=== PATIENT | male | born 1945 | race Caucasian/White ===

== ENCOUNTER 2016-06-06 10:21 | Outpatient (CLI) | payer MEDICARE, BC | END 2016-06-06 10:22 | disposition home or self-care (01) | DX: R93.6 Abnormal findings on diagnostic imaging of limbs (principal) ==

== ENCOUNTER 2019-06-12 10:47 | Emergency (ER) | payer MEDICARE, BC ==
--- NOTE | 2019-06-12 12:17 | ED Physician Documentation ---
PD HPI ABD PAIN - Stated complaint Stated Complaint: CONSTIPATION,S/P RT KNEE SURGERY - Chief complaint Chief Complaint: Abd Pain - History obtained from History obtained from: Patient (He is 5 days out from a knee replacement, taking oxycodone. He has not had a bowel movement in several days despite taking prune juice and milk of magnesia and now has cramps and rectal pressure as well as some urinary frequency.) Review of Systems Constitutional: reports: Reviewed and negative Cardiac: reports: Reviewed and negative Respiratory: reports: Reviewed and negative PD PAST MEDICAL HISTORY - Past Medical History Cardiovascular: None Respiratory: None Endocrine/Autoimmune: None GI: None HEENT: None Psych: None Musculoskeletal: None Derm: None - Past Surgical History Past Surgical History: No - Present Medications Home Medications: Ambulatory Orders Medication Instructions Recorded Confirmed Ibuprofen [Advil] 200 mg PO DAILY PRN 04/10/15 03/29/19 oxyCODONE [Roxicodone] 0.5 tab PO ONCE PRN 02/03/17 03/29/19 Lactulose [Constulose] 10 gm PO Q6H PRN #150 ml 06/12/19 - Allergies Allergies/Adverse Reactions: Allergies Allergy/AdvReac Type Severity Reaction Status Date / Time No Known Drug Allergies Allergy Verified 03/29/19 13:07 - Social History Does the pt smoke?: No Smoking Status: Never smoker Does the pt drink ETOH?: No Does the pt have substance abuse?: No - Immunizations Immunizations are current?: Yes - POLST Patient has POLST: No PD ED PE NORMAL - Vitals Vital signs reviewed: Yes - General General: Alert and oriented X 3, No acute distress - Abdomen Abdomen: Normal bowel sounds, Soft, Non tender - Rectal Rectal: Other (Soft brown fecal impaction, a saline enema was placed during exam.) - Back Back: No CVA TTP, No spinal TTP - Neuro Neuro: Alert and oriented X 3, Normal speech Results - Vitals Vitals: Vital Signs - 24 hr 06/12/19 10:50 Temperature 36.3 C L Heart Rate 99 Respiratory 18 Rate Blood Pressure 104/53 L O2 Saturation 99 Oxygen O2 Source Room air - Labs Labs: Laboratory Tests 06/12/19 12:15 Urine Color YELLOW Urine Clarity CLEAR Urine pH 7.5 Ur Specific [place] 1.015 Urine Protein NEGATIVE Urine Glucose (UA) NEGATIVE Urine Ketones NEGATIVE Urine Occult Blood NEGATIVE Urine Nitrite NEGATIVE Urine Bilirubin NEGATIVE Urine Urobilinogen 0.2 (NORMAL) Ur Leukocyte Esterase NEGATIVE Ur Microscopic Review NOT INDICATED Urine Culture Comments NOT INDICATED PD MEDICAL DECISION MAKING - ED course ED course: Using a combination of manual disimpaction and enemas we were able to clear the fecal impaction and he felt much better. Departure - Departure Disposition: Home, Self Care Clinical Impression: Fecal impaction Condition: Good Record reviewed to determine appropriate education?: Yes Instructions: ED Impaction Fecal Treated Prescriptions: Lactulose [Constulose] 10 gm PO Q6H PRN #150 ml PRN Reason: Constipation Comments: Drink plenty of fluids, on any day you do not have a bowel movement start taking the lactulose 4 times a day until you do. Return for new or worsening symptoms. Try to minimize the pain medication as much as possible or take Tylenol if you are not taking the narcotic which should not make you constipated
[2019-06-12 12:43] LABS: BILIRUBIN,URINE NEGATIVE (NEGATIVE); GLUCOSE, URINE (UA) NEGATIVE (NEGATIVE); KETONES,URINE (UA) NEGATIVE (NEGATIVE); LEUKOCYTE ESTERASE, URINE NEGATIVE (NEGATIVE); NITRITE,URINE NEGATIVE (NEGATIVE); OCCULT BLOOD,URINE NEGATIVE (NEGATIVE); PH,URINE 7.5 PH (5.0-7.5); PROTEIN,URINE NEGATIVE (NEGATIVE); UROBILINOGEN,URINE 0.2 (NORMAL) E.U./dL (NORMAL)
[2019-06-12 12:47] LABS: CLARITY,URINE CLEAR (CLEAR)
[2019-06-12] MEDS ORDERED: MAGNESIUM CITRATE 296 ML BOTTLE PO STA (13:00)
[2019-06-12 13:13] VITALS: BP 123/63
== END 2019-06-12 13:38 | disposition home or self-care (01) ==
LOC: ED 10:47
DX: K56.41 Fecal impaction (principal)
CPT/HCPCS: 81003; 99283; 99284; A9270; 81001; 87086

== ENCOUNTER 2021-07-13 17:12 | Outpatient (CLI) | payer MEDICARE, BC ==
[2021-07-13 17:54] LABS: BASOPHILS % (AUTO) 0.4 %; EOSINOPHILS # (AUTO) 0.1 10^3/uL (0.0-0.7); EOSINOPHILS % (AUTO) 1.3 %; HCT - HEMATOCRIT 34.7 % (42.0-52.0); HGB - HEMOGLOBIN 11.8 g/dL (14.0-18.0); LYMPHOCYTES # (AUTO) 1.6 10^3/uL (1.5-3.5); MEAN CORPUSCULAR HEMOGLOBIN 34.3 pg (27.0-31.0); MEAN CORPUSCULAR VOLUME 100.9 fL (80.0-94.0); MEAN PLATELET VOLUME 10.6 fL (7.4-11.4); MONOCYTES # (AUTO) 0.7 10^3/uL (0.0-1.0); MONOCYTES % (AUTO) 10.7 %; NEUTROPHILS # (AUTO) 4.2 10^3/uL (1.5-6.6); NEUTROPHILS % (AUTO) 63.3 %; NRBC ABSOLUTE COUNT (AUTO) 0.03 x10^3/uL; NUCLEATED RED BLOOD CELLS AUTO 0.4 /100WBC; PLT - PLATELET COUNT 340 10^3/uL (130-450); RED BLOOD COUNT 3.44 10^6/uL (4.70-6.10); RED CELL DISTRIBUTION WIDTH 17.2 % (12.0-15.0); WHITE BLOOD COUNT 6.7 x10^3/uL (4.8-10.8)
[2021-07-13 18:08] LABS: ALBUMIN 4.5 g/dL (3.2-5.5); ALBUMIN/GLOBULIN RATIO 1.6 (1.0-2.2); ALKALINE PHOSPHATASE 91 IU/L (42-121); ALT ALANINE AMINOTRANSFERASE 24 IU/L (10-60); AST ASPARTATE AMINOTRANSFERASE 21 IU/L (10-42); BILIRUBIN,TOTAL 1.1 mg/dL (0.2-1.0); BUN - BLOOD UREA NITROGEN 21 mg/dL (6-20); CALCIUM 8.9 mg/dL (8.5-10.3); CARBON DIOXIDE - CO2 30 mmol/L (21-32); CHLORIDE 101 mmol/L (101-111); CREATININE 0.9 mg/dL (0.6-1.2); GFR - MDRD 83 (>89); GLUCOSE 125 mg/dL (70-100); SODIUM 139 mmol/L (135-145); TOTAL PROTEIN 7.4 g/dL (6.7-8.2)
[2021-07-13 19:18] LABS: CRP - C-REACTIVE PROTEIN < 1.0 mg/dL (0-1.0)
[2021-07-13 20:58] LABS: RHEUMATOID FACTOR NEGATIVE (Negative)
[2021-07-17 14:01] LABS: ANA SCREEN NEGATIVE (NEGATIVE)
== END 2021-07-13 17:13 | disposition home or self-care (01) ==
LOC: LAB 17:12
PROVIDERS: ATTEND Nurse Practitioner Family
DX: T69.1XXA Chilblains, initial encounter (principal); M25.50 Pain in unspecified joint; R21 Rash and other nonspecific skin eruption
CPT/HCPCS: 36415; 80053; 81599; 85025; 85651; 86038; 86140; 86235; 86430

== ENCOUNTER 2022-08-31 22:32 | Emergency (ER) | payer MEDICARE, BC ==
--- NOTE | 2022-08-31 22:49 | ED Physician Documentation ---
History of Present Illness - Stated complaint Stated Complaint: SPLINTER IN L HAND/PX - Chief complaint Chief Complaint: General - History obtained from History obtained from: Patient - Additonal information Additional information: HPI from patient. Approximately 4 to 5 hours prior to arrival, the patient was using a table saw to cut up some yellow cedar. He tripped and fell forward, landing with her left outstretched hand onto a pile of some freshly cut wood, and felt a sharp pain in the left hand. On inspection of the area, he found a splinter; he says he was able to remove the splinter, but he subsequently suspects there is still part of the splinter in the skin based on a focal, sharp sensation with pressure to the area. He also notes increasing swelling around the area with associated pain that is both distal and proximal to the area of injury. He has full range of motion in the hand and fingers. Review of Systems Musculoskeletal: reports: Extremity pain, Extremity swelling Neurologic: denies: Focal weakness, Numbness PD PAST MEDICAL HISTORY - Past Medical History Cardiovascular: None Respiratory: None Endocrine/Autoimmune: None GI: None HEENT: None Psych: None Musculoskeletal: None Derm: None - Past Surgical History Past Surgical History: No - Present Medications Home Medications: Ambulatory Orders Medication Instructions Recorded Confirmed Doxycycline [Vibramycin] 100 mg PO BID #14 tablet 09/01/22 - Allergies Allergies/Adverse Reactions: Allergies Allergy/AdvReac Type Severity Reaction Status Date / Time No Known Drug Allergies Allergy Verified 08/31/22 22:42 - Social History Does the pt smoke?: No Smoking Status: Never smoker Does the pt drink ETOH?: No Does the pt have substance abuse?: No - Immunizations Immunizations are current?: Yes - POLST Patient has POLST: No PD ED PE NORMAL - Vitals Vital signs reviewed: Yes - General General: Alert and oriented X 3, No acute distress, Well developed/nourished - Derm Derm: Normal color, Warm and dry - Neuro Neuro: No motor deficit (Full range of motion and strength in extension as well as flexion of the left first second and third digits.), No sensory deficit (Light touch sensation is intact in the fingers of the left hand) PD ED PE EXPANDED - Extremities RYAN UE/Hands Visual: 1 - tenderness (Punctate defect in the skin with dark discoloration consistent with embedded foreign body (splinter). Patient reports sharp discomfort with palpation of the area. There is mild tenderness without erythema both distal and proximal to the area as labeled (2)) 2 - swelling Results - Vitals Vitals: Oxygen O2 Source Room air PD Medical Decision Making - ED course Complexity details: considered differential, d/w patient ED course: There is no bony tenderness on the exam and thus no radiologic studies such as x-ray are indicated at this time. After sterile prep with Betadine and alcohol swab, the area of suspected foreign body is numbed with local injection of 1% lidocaine without epinephrine. This provided good anesthesia.Using the beveled edge of a 25-gauge needle at the end of a 5 cc syringe, I then made a small incision; this did not result and clear, confident visualization of a foreign body. I then used a 27-gauge needle at the end of an insulin syringe to attempt to get probe deep to the suspected FB, but this resulted in brisk , focal (nonpulsatile) bleeding. The extent of the bleeding was insignificant, but it obscured further attempts at visualization of a foreign body. I applied direct pressure to the area for several minutes, and, eventually, hemostasis was achieved. I again tried to maneuver the 27- gauge needle to try to raise the proximal end of the foreign body, but, unfortunately, this again resulted in bleeding. As before, several minutes of pressure did result in complete hemostasis. I discussed with the patient that, at this point, further attempts to remove what is a suspected foreign body although not a clearly, confidently visualized one, is likely to cause more problems than prevent complications. One of his expressed concerns is infection. I explained that it would be exceedingly unusual to develop Infection within such a short span of time from the injury/foreign body. However, seeing that there is a reasonable suspicion that a foreign body remains in the area, I am providing him with a prescription for doxycycline, the first dose of which is given in the emergency department prior to discharge. He declines analgesia in the ER, as well as prescription for pain medication. Patient says that he is prescription pain medication at home which he will take if [id number] medications do not control his pain. Patient is driving home and does not want a medication that would preclude driving at this time. We carefully discussed return precautions, and I advised him to contact his primary care provider on Friday when the office is open to arrange for next available appointment for reevaluation Departure - Departure Disposition: 01 Home, Self Care Clinical Impression: Foreign body (FB) in soft tissue Condition: Good Instructions: ED Foreign Body Soft Tissue Prescriptions: Doxycycline [Vibramycin] 100 mg PO BID #14 tablet Comments: Unfortunately, I was unable to get the splinter out. This was partly due to the bleeding that occurred when the skin was opened slightly (the bleeding obscures the view of the area), but I also did not have confident visualization of the splinter when I first made the opening (prior to the bleeding). As we discussed, splinters are often eventually encapsulated by the body and slowly pushed out of the skin. I am prescribing an antibiotic for you (doxycycline), with the first dose given in the emergency department and a prescription for this antibiotic electronically submitted to the [facility] pharmacy in [place]. You should contact your primary care provider when the office opens on Friday to arrange for follow-up/reevaluation; ideally, if they can reevaluate you in 2 to 3 days. Certainly, if your signs/symptoms worsen, you should return to the emergency department for reevaluation. Concerning signs/symptoms would include fever, increasing pain/swelling, increasing redness around the area, red streaking going up the arm from the area. Discharge Date/Time: 09/01/22 02:50
[2022-08-31] MEDS ORDERED: LIDOCAINE 1% 2 ML VIAL SUBQ STA (23:07)
[2022-09-01] MEDS ORDERED: DOXYCYCLINE 100 MG TABLET PO STA (01:35)
[2022-09-01] MEDS ORDERED: BACITRACIN ZINC OINT 1 PACKET TOP STA (01:35)
[2022-09-01 01:55] VITALS: BP 139/79
== END 2022-09-01 02:50 | disposition home or self-care (01) ==
LOC: ED 22:32
DX: S60.552A Superficial foreign body of left hand, initial encounter (principal); W01.198A Fall on same level from slipping, tripping and stumbling with subsequent striking against other object, initial encounter; Y93.89 Activity, other specified
CPT/HCPCS: 10120; 99282; A9270

== ENCOUNTER 2023-07-14 09:23 | Outpatient (CLI) | payer MEDICARE, BC ==
[2023-07-16 18:08] LABS: ANTINUCLEAR ANTIBODIES IFA Negative (.)
== END 2023-07-14 09:24 | disposition home or self-care (01) ==
LOC: LAB 09:23
PROVIDERS: ATTEND Internal Medicine
DX: I73.00 Raynaud's syndrome without gangrene (principal)
CPT/HCPCS: 86038

== ENCOUNTER 2023-07-31 17:28 | Outpatient (CLI) | payer MEDICARE, BC ==
[2023-07-31 18:06] LABS: ALBUMIN 4.4 g/dL (3.2-5.5)
[2023-07-31 18:12] LABS: BILIRUBIN,DIRECT 0.15 mg/dL (0.03-0.18); BILIRUBIN,TOTAL 0.7 mg/dL (0.2-1.0); CREATININE 0.8 mg/dL (0.6-1.3); TOTAL PROTEIN 6.4 g/dL (6.4-8.9)
== END 2023-07-31 17:29 | disposition home or self-care (01) ==
LOC: LAB 17:28
PROVIDERS: ATTEND Physician Assistant Medical
DX: B35.1 Tinea unguium (principal)
CPT/HCPCS: 36415; 80076; 82565; 84520

== ENCOUNTER 2023-10-06 12:53 | Outpatient (CLI) | payer MEDICARE, BC ==
[2023-10-06 13:23] LABS: ALBUMIN 4.3 g/dL (3.2-5.5); BILIRUBIN,DIRECT 0.22 mg/dL (0.03-0.18); BILIRUBIN,TOTAL 1.1 mg/dL (0.2-1.0); CREATININE 0.8 mg/dL (0.6-1.3); TOTAL PROTEIN 6.7 g/dL (6.4-8.9)
== END 2023-10-06 12:54 | disposition home or self-care (01) ==
LOC: LAB 12:53
PROVIDERS: ATTEND Physician Assistant Medical
DX: B35.1 Tinea unguium (principal)
CPT/HCPCS: 36415; 80076; 82565; 84520

== ENCOUNTER 2023-12-18 18:53 | Outpatient (CLI) | payer MEDICARE, BC ==
[2023-12-18 19:23] LABS: ALBUMIN 4.5 g/dL (3.2-5.5); BILIRUBIN,DIRECT 0.17 mg/dL (0.03-0.18); BILIRUBIN,TOTAL 0.8 mg/dL (0.2-1.0); TOTAL PROTEIN 6.6 g/dL (6.4-8.9)
== END 2023-12-18 18:54 | disposition home or self-care (01) ==
LOC: LAB 18:53
PROVIDERS: ATTEND Physician Assistant Medical
DX: B35.1 Tinea unguium (principal)
CPT/HCPCS: 36415; 80076; 84520

== ENCOUNTER 2024-01-30 07:00 | Outpatient (CLI) | payer MEDICARE, BC ==
--- NOTE | 2024-02-01 06:58 | XRAY Report ---
PROCEDURE: Chest 2V INDICATIONS: COUGH TECHNIQUE: 2 views of the chest were acquired. COMPARISON: Chest x-ray 04/24/2015 FINDINGS: Surgical changes and devices: None. Lungs and pleura: No pleural effusions or pneumothorax. Lungs are clear. Mediastinum: Tortuous contour of the thoracic aorta. Mediastinal contours appear normal. Heart size is normal. Bones and chest wall: No suspicious bony lesions. Overlying soft tissues appear unremarkable. IMPRESSION: No acute cardiothoracic process. Reviewed by: Crow Short MD on 02/01/2024 6:56 AM PDT Approved by: Crow Short MD on 02/01/2024 6:56 AM PDT Station ID: [id number]
== END 2024-01-30 23:59 | disposition home or self-care (01) ==
LOC: DI.S 07:00
PROVIDERS: ATTEND Emergency Medicine
DX: R05.9 Cough, unspecified (principal)